=== PATIENT | female | born 1975 | race Caucasian/White ===

== ENCOUNTER 2016-10-21 18:44 | Emergency (ER) | payer OTHER | END 2016-10-21 19:20 | disposition home or self-care (01) | LOC: ER1 18:44 | DX: S70.362A Insect bite (nonvenomous), left thigh, initial encounter (principal); F17.200 Nicotine dependence, unspecified, uncomplicated; W57.XXXA Bitten or stung by nonvenomous insect and other nonvenomous arthropods, initial encounter | CPT/HCPCS: 99281 ==

== ENCOUNTER 2017-01-15 18:36 | Emergency (ER) | payer OTHER ==
[2017-01-15 19:34] LABS: HEMOGLOBIN 11.6 gm/dl (12.3-15.3); RED BLOOD COUNT 3.83 M/UL (4.00-5.10); WHITE BLOOD COUNT 7.9 K/UL (4.5-11.0)
[2017-01-15 19:59] LABS: BUN/CREATININE RATIO 21 (0-10)
== END 2017-01-15 22:47 | disposition home or self-care (01) ==
LOC: ER1 18:36
PROVIDERS: Family Medicine
DX: R10.31 Right lower quadrant pain (principal); F17.210 Nicotine dependence, cigarettes, uncomplicated
CPT/HCPCS: 36415; 80053; 81001; 82150; 83690; 84703; 85025; 87086; 96374; 96375; 99284; J2270; J2405; J7050; Q9962

== ENCOUNTER 2021-04-24 17:17 | Emergency (ER) | payer OTHER ==
[~2021-04-24 17:17] MED LIST: FLEXERIL 10 MG10 MG PO; HYDROCODON-ACE1 EAC4 PO; IBUPROFEN600 MG PO; IBUPROFEN800 MG PO; K-DUR TAB 20 M20 MEQ PO; KEFLEX CAP 500500 MG PO; KEPPRA500 MG PO; NAPROSYN500 MG PO; PERCOCET 5/325 T1 EA PO; PHENERGAN 12.12.5 M1 PO; PHENERGAN 25 MG25 M1 PO; VIBRAMYCIN100 MG PO; ZOFRAN ODT 4 MG4 MG PO; ZOFRAN4 MG PO
[2021-04-24 18:39] LABS: HEMOGLOBIN 12.8 gm/dl (12.3-15.3); RED BLOOD COUNT 4.17 M/UL (4.00-5.10); WHITE BLOOD COUNT 7.1 K/UL (4.5-11.0)
[2021-04-24 18:54] LABS: BUN/CREATININE RATIO 27 (0-10)
== END 2021-04-25 18:20 | disposition short-term general hospital (02) ==
LOC: ER1 17:17
PROVIDERS: Family Medicine
DX: T43.592A Poisoning by other antipsychotics and neuroleptics, intentional self-harm, initial encounter (principal); F11.10 Opioid abuse, uncomplicated; R45.851 Suicidal ideations; Z20.822 Contact with and (suspected) exposure to COVID-19; X58.XXXA Exposure to other specified factors, initial encounter; F17.200 Nicotine dependence, unspecified, uncomplicated
CPT/HCPCS: 51701; 80053; 80307; 81001; 85025; 96374; 99285; G0480; J2310; U0002

== ENCOUNTER 2021-08-29 17:49 | Emergency (ER) | payer OTHER ==
[2021-08-29] MEDS ORDERED: CEPHALEXIN500 M1 PO (21:05)
== END 2021-08-29 21:33 | disposition home or self-care (01) ==
LOC: ER1 17:49
DX: J06.9 Acute upper respiratory infection, unspecified (principal); N39.0 Urinary tract infection, site not specified; J00 Acute nasopharyngitis [common cold]; Z20.822 Contact with and (suspected) exposure to COVID-19; F17.200 Nicotine dependence, unspecified, uncomplicated
CPT/HCPCS: 0240U; 81001; 87081; 87086; 87880; 99283

== ENCOUNTER 2021-10-31 02:41 | Emergency (ER) | payer OTHER ==
[~2021-10-31 02:41] MED LIST changes: +CEPHALEXIN500 M1 PO
[2021-10-31] MEDS ORDERED: KEPPRA500 MG PO (03:00)
== END 2021-10-31 03:10 | disposition home or self-care (01) ==
LOC: ER1 02:41
DX: G40.909 Epilepsy, unspecified, not intractable, without status epilepticus (principal); F17.200 Nicotine dependence, unspecified, uncomplicated
CPT/HCPCS: 93005; 99284